=== PATIENT | male | born 1995 | race Hispanic/Latino ===

== ENCOUNTER 2019-01-16 10:08 | Emergency (ER) | payer MEDICAID ==
[2019-01-16] MEDS ORDERED: ACETAMINOPHEN 325 MG TAB ONE (10:19)
== END 2019-01-16 11:44 | disposition home or self-care (01) ==
LOC: EDH 10:08 → EEVIPCON 10:08 → EDH 11:44
DX: S06.0X0A Concussion without loss of consciousness, initial encounter (principal); F90.9 Attention-deficit hyperactivity disorder, unspecified type; Z79.899 Other long term (current) drug therapy; Y04.2XXA Assault by strike against or bumped into by another person, initial encounter; Y93.89 Activity, other specified; Y92.89 Other specified places as the place of occurrence of the external cause; Y99.8 Other external cause status
CPT/HCPCS: 70450

== ENCOUNTER 2019-03-19 09:42 | Emergency (ER) | payer MEDICAID ==
[2019-03-19] MEDS ORDERED: KETOROLAC TROMETHAMINE 60 MG/2 ML VIAL ONE (10:07)
[2019-03-19] MEDS ORDERED: TETANUS/DIPHTHERIA TOXOID [ADULT] 0.5 ML VIAL IM ONE (10:08)
== END 2019-03-19 12:03 | disposition home or self-care (01) ==
LOC: EDH 09:42
DX: S13.8XXA Sprain of joints and ligaments of other parts of neck, initial encounter (principal); F90.9 Attention-deficit hyperactivity disorder, unspecified type; F32.9 Major depressive disorder, single episode, unspecified; V49.59XA Passenger injured in collision with other motor vehicles in traffic accident, initial encounter; Y93.89 Activity, other specified; Y92.410 Unspecified street and highway as the place of occurrence of the external cause; Y99.8 Other external cause status
CPT/HCPCS: 72125; 90471; 90714; 96372; 99284; J1885